=== PATIENT | male | born 1960 | race American Indian/Alaskan Native ===

== ENCOUNTER 2016-12-23 05:17 | Day surgery (SDC) | payer BC, OTHER ==
[2016-12-23] MEDS ORDERED: Midazolam 1 MG/ML 2 ML SDV ONE (06:08)
[2016-12-23] MEDS ORDERED: fentaNYL 100 MCG/2 ML SDV ONE (06:08)
[2016-12-23] MEDS ORDERED: fentaNYL 100 MCG/2 ML SDV IV ONE ×2 (06:26→16:20)
[2016-12-23] MEDS ORDERED: Midazolam 1 MG/ML 2 ML SDV IV ONE ×8 (06:27→16:20)
[2016-12-23] MEDS ORDERED: Sodium Chloride 0.9% 10 ML Syringe FLUSH PRN (07:00)
[2016-12-23] MEDS ORDERED: Dextrose 5%-0.45% NaCl 1,000 ML IV SCH (07:00)
--- NOTE | 2016-12-23 07:12 | OR ---
DATE: 12/23/2016 PROCEDURE: Total colonoscopy. INSTRUMENT USED: CF-H180 AL Olympus video colonoscope. PREMEDICATIONS: Fentanyl 100 mcg intravenous, Versed 4 mg intravenous, Nasal O2 cannula. The procedure was done under pulse oximetry, BP recording, and radiation monitor. INDICATION: The patient with Hemoccult positive stools. Colonoscopic examination is done for detection of any polypoid lesions and removal, endoscopic hemostasis therapy if needed. Initial rectal exam was unremarkable. Rigid anoscopy was normal. The colonoscope was passed with ease. Numerous scattered diverticula were noted in the distal left colon along with deformity. The scope was passed with ease to the ileocecal area, photographs were taken of the normal-appearing cecum, identified with landmarks of appendiceal orifice and double-bulged ileocecal folds. No bleeding was noted from any of the visualized areas at the commencement of the examination. No stricture. No vascular ectasia. No large isolated ulcerations seen. No evidence of diffuse inflammatory bowel disease in the form of friability, contact bleeding, or ulcerations. No polyp or tumor mass was identified. Probing the proximal sides of folds and flexures using adequate distention and clearing up the stool material, withdrawal of the scope was made, cecum to rectum time over 6 minutes. No bleeding was noted from any of the visualized areas at the completion of examination. IMPRESSION: Diverticulosis. The patient tolerated the procedure well. [facility] /[id number]
[2016-12-23 09:13] VITALS: BP 143/97
--- NOTE | 2016-12-23 13:18 | LETTER ---
12/23/2016 Naima Castellanos NP [facility] [address] [place] [address] RE: TENISHA HASSAN : 1960 Dear Ms. Castellanos: Mr. Tenisha Hassan had colonoscopic examination done this morning, which was negative for any bleeding areas. I herewith send a copy of the endoscopy note and photographs for your review. He is scheduled for EGD next week. [facility] /[id number]
== END 2016-12-23 09:10 | disposition home or self-care (01) ==
LOC: DL.ENDO 05:17
PROVIDERS: ATTEND Internal Medicine Gastroenterology
PROC: 0DJD8ZZ Inspection of Lower Intestinal Tract, Via Natural or Artificial Opening Endoscopic (ICD-10-PCS; principal; 2016-12-23)
DX: R19.5 Other fecal abnormalities (principal); K57.90 Diverticulosis of intestine, part unspecified, without perforation or abscess without bleeding
CPT/HCPCS: 45378; J2250; J3010; J7042

== ENCOUNTER → 2016-12-28 | Day surgery (SDC) | payer BC, OTHER ==
[~2016-12-28] MED LIST: Dextrose 5%-0.45% NaCl 1,000 ML IV SCH; Midazolam 1 MG/ML 2 ML SDV IV ONE; Midazolam 1 MG/ML 2 ML SDV ONE; fentaNYL 100 MCG/2 ML SDV IV ONE; fentaNYL 100 MCG/2 ML SDV ONE
[2016-12-28 08:46] VITALS: BP 136/97
--- NOTE | 2016-12-28 09:48 | OR ---
DATE: 12/28/2016 PROCEDURE: Esophagogastroduodenoscopy and multiple pinch biopsies. INSTRUMENT USED: GIF-H180 Olympus video panendoscope. PREMEDICATIONS: No oral topical anesthesia used. Fentanyl 100 mcg intravenous, Versed 2 mg intravenous. The procedure was done under pulse oximetry, BP recording, and secured entrance monitor. INDICATION: The patient with recently detected Hemoccult positive stools. Colonoscopic examination negative for any bleeding areas, status post bariatric surgery for morbid exogenous obesity. Esophagogastroduodenoscopy is performed for detection of any active erosive lesions, H. pylori status to be determined, endoscopic hemostasis therapy if needed. Patient at this time on long-term aspirin and also on PPI. The scope was passed with ease. Adequate visualization of the esophagus was made from proximal to distal areas. No upper esophageal lesions identified. No distal esophageal stricture. No uphill or downhill esophageal varices. No Sulema-Willett tear. No evidence of erosive esophagitis by Los criteria. No esophageal polyp or tumor mass identified. Z- line was seen at around 40 cm distal to the oral verge, configuration consistent with grade 1 by ZAP classification. No proximal gastric varices noted. Gastric fundus examination by retroflexion showed no polypoid lesions. No gastric ulcer, malignant mass, or vascular ectasia identified at this surgical site, erosion was noted without bleeding from it, photographs were also taken of the gastric fundus and distal esophagus. Visualized loops of the small bowel were unremarkable. Multiple pinch biopsies were taken from the distal and proximal gastric mucosa and sent for PyloriTek test for H. pylori, and if negative, another tissue to be sent for histopathology. No bleeding was noted from any of the visualized areas. IMPRESSION: Anastomotic erosion. The patient tolerated the procedure well. [facility] /[id number]
--- NOTE | 2016-12-28 11:22 | LETTER ---
12/28/2016 Naima Emanuel [facility] [address] [place] [address] RE: TENISHA HASSAN : Dear Ms: Emanuel Mr. Tenisha Hassan had esophagogastroduodenoscopy done this morning and he tolerated the procedure well. I herewith send a copy of the endoscopy note and photographs for your review. For now, aspirin is discontinued and Omeprazole dosage is increased to 20 mg p.o. b.i.d. Thank you. Sincerely, [facility] /[id number]
== END | disposition home or self-care (01) ==
LOC: DL.ENDO 05:35
PROVIDERS: ATTEND Internal Medicine Gastroenterology
DX: K29.50 Unspecified chronic gastritis without bleeding (principal); E66.01 Morbid (severe) obesity due to excess calories; I10 Essential (primary) hypertension; E11.9 Type 2 diabetes mellitus without complications; Z98.84 Bariatric surgery status
CPT/HCPCS: 43239; 87077; J2250; J3010; J7042

== ENCOUNTER 2019-08-03 09:14 | Emergency (ER) | payer BC, OTHER ==
[2019-08-03] MEDS ORDERED: Sodium Chloride 0.9% 10 ML Syringe FLUSH PRN (09:28)
--- NOTE | 2019-08-03 09:37 | EDM.PDOC ---
ED HPI GENERAL MEDICAL PROBLEM - General Chief Complaint: Respiratory Problem Stated Complaint: UNKNOWN Time Seen by Provider: 08/03/19 09:20 Source of Information: Reports: Patient History Limitations: Reports: No Limitations - History of Present Illness INITIAL COMMENTS - FREE TEXT/NARRATIVE: patient comes emergency department today from home with concerns of chest pain and shortness of breath. This patient for the past couple of days reports that he has had a intermittent sharp shooting stabbing pain in the left side of his chest. Yesterday morning he woke up about 4:30 in the morning and was unable to breathe and lay down. He was seen at the [facility] clinic yesterday had a chest x-ray and was called this morning and told to come to the ER because of the findings of the chest x-ray. He has a dry hacking nonproductive cough. He has intermittent right-sided chest pain and midsternal pain primarily with a deep breath and cough. He has no pain when he is doing. No weakness dizziness lightheadedness. No syncope. No fever no chills. His cough is dry hacking nonproductive. No abdominal pain no nausea no vomiting. He has had no recent surgeries or procedures. He does have history of emphysema no history of any cancers. Right Chest Pain Score (Numeric/FACES): 4 - Related Data Allergies Allergy/AdvReac Type Severity Reaction Status Date / Time No Known Allergies Allergy Verified 08/03/19 09:33 Home Meds: Home Meds Aspirin [Andrea Chewable] 81 mg PO BEDTIME 11/21/13 [History] Multivitamin [Multi Vitamin Daily] 1 tab PO BID 11/21/13 [History] Albuterol Sulfate [Proair Hfa] 2 puff INH Q6HR PRN 12/21/16 [History] Past Medical History HEENT History: Reports: Sinusitis Cardiovascular History: Reports: Arrhythmia, Hypertension Respiratory History: Reports: Sleep Apnea, Other (See Below) Other Respiratory History: emphysema Gastrointestinal History: Reports: GERD, Hepatitis Genitourinary History: Reports: Other (See Below) Other Genitourinary History: RENAL CYST Musculoskeletal History: Reports: Other (See Below) Other Musculoskeletal History: heal spurs Neurological History: Reports: None Psychiatric History: Reports: None Endocrine/Metabolic History: Reports: Diabetes, Type II, Obesity/BMI 30+ Hematologic History: Reports: None Immunologic History: Reports: None Oncologic (Cancer) History: Reports: None Dermatologic History: Reports: None - Infectious Disease History Infectious Disease History: Reports: Chicken Pox, Hepatitis B, Measles, Mumps - Past Surgical History GI Surgical History: Reports: Bariatric Procedure, Cholecystectomy, EGD Musculoskeletal Surgical History: Reports: Carpal Tunnel Social & Family History - Family History HEENT: Reports: None Cardiac: Reports: None Respiratory: Reports: None GI: Reports: None : Reports: None OBGYN: Reports: None Musculoskeletal: Reports: Arthritis Neurological: Reports: None Psychiatric: Reports: None Endocrine/Metabolic: Reports: Diabetes, type II Hematologic: Reports: None Immunologic: Reports: None Dermatologic: Reports: Eczema Oncologic: Reports: Liver - Caffeine Use Caffeine Use: Reports: Coffee Caffeine Use Comment: 2 cups coffee daily ED ROS GENERAL - Review of Systems Review Of Systems: ROS reveals no pertinent complaints other than HPI. ED EXAM, GENERAL - Physical Exam Exam: See Below Free Text/Narrative:: patient is resting Margaret on the cot and is able to speak in full sentences appears in no acute distress. Exam Limited By: No Limitations General Appearance: Alert, WD/WN, No Apparent Distress Nose: Normal Inspection Throat/Mouth: Normal Inspection, Normal Lips, Normal Oropharynx, No Airway Compromise Head: Atraumatic, Normocephalic Neck: Normal Inspection, Supple Respiratory/Chest: No Respiratory Distress, Decreased Breath Sounds (profoundly on the right some lung sounds at the apex. Normal on the left without wheezes rhonchi or rales.). No: Respiratory Distress, Accessory Muscle Use Cardiovascular: Normal Peripheral Pulses, Regular Rate, Rhythm, No Edema, No Murmur Peripheral Pulses: 2+: Radial (L), Radial (R), Popliteal (L), Popliteal (R) GI/Abdominal: Normal Bowel Sounds, Soft Back Exam: Normal Inspection, Full Range of Motion Extremities: Normal Inspection, Normal Range of Motion, Normal Capillary Refill Neurological: Alert, Oriented, Normal Cognition, No Motor/Sensory Deficits Psychiatric: Normal Affect, Normal Mood Skin Exam: Warm, Dry, Intact Lymphatic: No Adenopathy EKG INTERPRETATION EKG Date: 08/03/19 Time: 09:29 Rhythm: NSR Rate (Beats/Min): 86 [place]: Normal P-Wave: Present QRS: Normal ST-T: Normal QT: Normal Course - Vital Signs Last Recorded V/S: Last Vital Signs Temp 36.9 C 08/03/19 09:25 Pulse 92 08/03/19 09:25 Resp 18 08/03/19 09:25 BP 152/90 H 08/03/19 09:25 Pulse Ox 92 L 08/03/19 09:25 - Orders/Labs/Meds Orders: Active Orders 24 hr Category Date Time Status EKG 12 Lead [EKG Documentation Completion] [RC] URGENT Care 08/03/19 09:27 Active Peripheral IV Care [RC] . DIRECTED Care 08/03/19 09:28 Active B-TYPE NATRIURETIC PEPTIDE,BNP [CHEM] Stat Lab 08/03/19 09:29 Results C-REACTIVE PROTEIN [CHEM] Stat Lab 08/03/19 09:29 Received COMPREHENSIVE METABOLIC PN,CMP [CHEM] Stat Lab 08/03/19 09:29 Results LACTIC ACID [CHEM] Stat Lab 08/03/19 09:29 Received TROPONIN I [CHEM] Stat Lab 08/03/19 09:29 Results Sodium Chloride 0.9% [Saline Flush] Med 08/03/19 09:28 Active 10 ml FLUSH ASDIRECTED PRN Peripheral IV Insertion Adult [OM.PC] Stat Oth 08/03/19 09:27 Ordered Medication Orders Sodium Chloride (Saline Flush) 10 ml FLUSH ASDIRECTED PRN PRN Reason: Keep Vein Open Last Admin: 08/03/19 09:31 Dose: 10 ml Labs: Laboratory Tests 08/03/19 08/03/19 08/03/19 Range/Units 09:29 09:29 09:29 WBC 14.2 H (5.0-10.0) 10^3/uL RBC 5.17 (4.6-6.2) 10^6/uL Hgb 14.2 (14.0-18.0) g/dL Hct 43.2 (40.0-54.0) % MCV 83.6 (80-100) fL MCH 27.5 (27.0-34.0) pg MCHC 32.9 L (33.0-35.0) g/dL Plt Count 250 (150-450) 10^3/uL Neut % (Auto) 89.3 H (42.2-75.2) % Lymph % (Auto) 7.6 L (20.5-50.1) % [place] % (Auto) 2.7 (2-8) % Eos % (Auto) 0.2 L (1.0-3.0) % Baso % (Auto) 0.2 (0.0-1.0) % D-Dimer, Quantitative < 100 (0-400) ng/mL Troponin I < 0.02 (0.00-0.02) ng/ml B-Natriuretic Peptide 18 (0-100) pg/ml Meds: Medications Generic Name Dose Route Start Last Admin Trade Name Freq PRN Reason Stop Dose Admin Sodium Chloride 10 ml 08/03/19 09:28 08/03/19 09:31 Saline Flush FLUSH 10 ml ASDIRECTED PRN Administration Keep Vein Open Discontinued Medications Generic Name Dose Route Start Last Admin Trade Name Freq PRN Reason Stop Dose Admin Iopamidol 75 ml 08/03/19 10:10 08/03/19 10:20 Isovue-300 (61%) IVPUSH 08/03/19 10:11 75 ml ONETIME ONE Administration - Radiology Interpretation Free Text/Narrative:: chest x-ray initially reviewed extemporaneously initially by myself shows a pneumothorax on the right side about 50%. Loculated. CT chest with contrast initially reviewed Ixempra initially by myself shows a rather large 95% pneumothorax loculated no subcutaneous air complete collapsing of the right lung posteriorly. CT of the chest per radiology shows a very large right-sided pneumothorax with a right lung largely collapsed. Bullous emphysematous disease bilaterally - Re-Assessments/Exams Free Text/Narrative Re-Assessment/Exam: 08/03/19 11:15 I did speak with Dr. West the surgeon tombstone setter and he advises no chest tube at this time as the patient is clinically stable and to allow the definitive care facility to evaluate and treat. I called and spoke with Dr. River the hospitalist tombstone setter at [facility] in [place]. History of present illness ER course findings and concerns were relayed to him. He does not want a chest tube placed either as he is clinically stable. Transfer by ground ambulance. I discussed with the patient and his the concerns of this rather large pneumothorax.He needs transfer to a higher level of care where they have CV surgery as well as interventional radiology. I reviewed the CAT scans chest x- ray and his laboratory evaluation with him his questions were answered and he was comfortable with this plan. Departure - Departure Time of Disposition: 11:00 Disposition: DC/Tfer to Acute Hospital 02 Clinical Impression: Pneumothorax on right, Bullous emphysema with collapse - Discharge Information Forms: ED Department Discharge - My Orders Last 24 Hours: My Active Orders 08/03/19 09:27 EKG 12 Lead [EKG Documentation Completion] [RC] URGENT Peripheral IV Insertion Adult [OM.PC] Stat 08/03/19 09:28 Peripheral IV Care [RC] . DIRECTED Sodium Chloride 0.9% [Saline Flush] 10 ml FLUSH ASDIRECTED PRN 08/03/19 09:29 B-TYPE NATRIURETIC PEPTIDE,BNP [CHEM] Stat C-REACTIVE PROTEIN [CHEM] Stat COMPREHENSIVE METABOLIC PN,CMP [CHEM] Stat LACTIC ACID [CHEM] Stat TROPONIN I [CHEM] Stat - Assessment/Plan Last 24 Hours: My Active Orders 08/03/19 09:27 EKG 12 Lead [EKG Documentation Completion] [RC] URGENT Peripheral IV Insertion Adult [OM.PC] Stat 08/03/19 09:28 Peripheral IV Care [RC] . DIRECTED Sodium Chloride 0.9% [Saline Flush] 10 ml FLUSH ASDIRECTED PRN 08/03/19 09:29 B-TYPE NATRIURETIC PEPTIDE,BNP [CHEM] Stat C-REACTIVE PROTEIN [CHEM] Stat COMPREHENSIVE METABOLIC PN,CMP [CHEM] Stat LACTIC ACID [CHEM] Stat TROPONIN I [CHEM] Stat Assessment:: right-sided large pneumothorax. Bullous emphysematous bilaterally with right lung collapse Plan: transfer by ground ambulance to [facility] in [place] for further care and evaluation. With the discussion with the EMS if acute respiratory distress or decompensation a right sided needle thoracentisis should be completed.
[2019-08-03] MEDS ORDERED: Iopamidol 612 MG/ML 75 ML Bottle IVPUSH ONE (10:10)
[2019-08-03 11:10] LABS: ANION GAP 13.9; CHLORIDE,CL 108 mmol/L (101-111); SODIUM,NA 137 mmol/L (135-145)
[2019-08-03 11:19] VITALS: BP 134/82; PULSE 78
== END 2019-08-03 11:49 ==
LOC: DL.ED 09:14
DX: J93.9 Pneumothorax, unspecified (principal); J43.9 Emphysema, unspecified; I10 Essential (primary) hypertension; E11.9 Type 2 diabetes mellitus without complications; E66.9 Obesity, unspecified; Z79.82 Long term (current) use of aspirin
CPT/HCPCS: 36415; 71046; 71260; 80053; 83605; 83880; 84484; 85025; 85379; 86140; 93005; 99285; Q9967

== ENCOUNTER 2023-09-18 07:55 | Emergency (ER) | payer BC, OTHER ==
[2023-09-18] MEDS ORDERED: fentaNYL 100 MCG/2 ML SDV IVPUSH ONE ×5 (08:01→12:50)
[2023-09-18] MEDS ORDERED: Sodium Chloride 0.9% 10 ML Syringe FLUSH PRN (08:01)
[2023-09-18] MEDS ORDERED: Sodium Chloride 0.9% 1,000 ML IV ONE ×2 (08:01→08:56)
[2023-09-18] MEDS ORDERED: Ondansetron 4 MG/2 ML SDV IV ONE (08:01)
[2023-09-18] MEDS ORDERED: Iopamidol 755 Mg/ML 100 ML Bottle IVPUSH ONE (08:05)
[2023-09-18 08:07] VITALS: BP 114/81; PULSE 60
[2023-09-18 08:31] LABS: BASOPHILS PERCENT AUTO 0.2 % (0.0-1.0); HEMOGLOBIN 10.4 g/dL (14.0-18.0); MEAN CORPUSCULAR HEMOGLOBIN 29.4 pg (27.0-34.0); MEAN CORPUSCULAR HGB CONC 30.6 g/dL (33.0-35.0); MONOCYTES PERCENT AUTO 3.9 % (2-8); NEUTROPHILS PERCENT AUTO 75.9 % (42.2-75.2); PLATELET COUNT,PLT 568 10^3/uL (150-450); RED BLOOD CELL COUNT 3.54 10^6/uL (4.6-6.2); WHITE BLOOD CELL COUNT,WBC 9.4 10^3/uL (5.0-10.0)
[2023-09-18 08:53] LABS: ALANINE AMINOTRANSFERASE,ALT 21 U/L (16-63); ALBUMIN 3.1 g/dL (3.4-5.0); ALKALINE PHOSPHATASE 90 U/L (46-116); ASPARTATE AMNIOTRANSFERASE,AST 15 U/L (15-37); BILIRUBIN TOTAL 0.5 mg/dL (0.2-1.0); BLOOD UREA NITROGEN,BUN 11 mg/dL (7-18); BUN/CREATININE RATIO 13.4 (No establ ref range); CALCIUM 8.1 mg/dL (8.5-10.1); CREATININE 0.82 mg/dL (0.70-1.30); EST CRCL DRUG DOSING (CG) 99.48 mL/min; GLUCOSE RANDOM 180 mg/dL (70-99); LIPASE 40 U/L (16-77); PROTEIN TOTAL,TP 6.1 g/dL (6.4-8.2)
[2023-09-18 08:56] LABS: INR 0.9 (0.9-1.2); PROTHROMBIN TIME 9.3 SEC (9.0-12.0)
[2023-09-18 08:59] LABS: ANION GAP 14.6 mEq/L (7-13); CARBON DIOXIDE,CO2 22 mmol/L (21-32); CHLORIDE,CL 107 mmol/L (98-107); POTASSIUM,K 3.6 mmol/L (3.5-5.1); SODIUM,NA 140 mmol/L (136-145)
[2023-09-18 09:01] LABS: A/G RATIO 1.03; C-REACTIVE PROTEIN < 0.50 ng/dL (<=0.50); ESTIMATED GFR 99 mL/min (>=60); LACTIC ACID 2.7 mmol/L (0.4-2.0)
[2023-09-18 09:44] LABS: APPEARANCE,URINE CLEAR (CLEAR); BILIRUBIN,URINE NEGATIVE (NEGATIVE); COLOR,URINE DARK YELLOW (YELLOW); GLUCOSE,URINE NEGATIVE (NEGATIVE); KETONES,URINE NEGATIVE (NEGATIVE); LEUKOCYTE ESTERASE,URINE NEGATIVE (NEGATIVE); NITRITE,URINE NEGATIVE (NEGATIVE); OCCULT BLOOD,URINE NEGATIVE (NEGATIVE); PH,URINE 5.5 (5.0-9.0); PROTEIN,URINE NEGATIVE (NEGATIVE); UROBILINOGEN,URINE 0.2 mg/dL (0.2-1.0)
[2023-09-18] MEDS ORDERED: fentaNYL 100 MCG/2 ML SDV ONE (11:19)
[2023-09-18] MEDS ORDERED: Piperacillin/Tazobactam 4.5 GM in Sodium Chloride 0.9% 100 ML IV ONE (11:53)
== END 2023-09-18 12:57 ==
LOC: DL.ED 07:55
DX: K63.1 Perforation of intestine (nontraumatic) (principal); I10 Essential (primary) hypertension; E11.9 Type 2 diabetes mellitus without complications; J43.9 Emphysema, unspecified; Z87.891 Personal history of nicotine dependence; E66.9 Obesity, unspecified; Z68.38 Body mass index [BMI] 38.0-38.9, adult; Z79.82 Long term (current) use of aspirin; Z79.899 Other long term (current) drug therapy
CPT/HCPCS: 36415; 71045; 71275; 74175; 80053; 81003; 83605; 83690; 84145; 84484; 85025; 85610; 85730; 86140; 87040; 93005; 93010; 96361; 96365; 96375; 96376; 99285; 99285-25; J2405; J2543; J3010; J3490; J7030; Q9967

== ENCOUNTER 2024-11-10 14:50 | Emergency (ER) | payer BC, OTHER ==
[2024-11-10 15:07] VITALS: BP 111/66; PULSE 110
== END 2024-11-10 15:09 | disposition home or self-care (01) ==
LOC: DL.ED 14:50
DX: J18.9 Pneumonia, unspecified organism (principal); I10 Essential (primary) hypertension; E11.9 Type 2 diabetes mellitus without complications; E66.9 Obesity, unspecified; Z68.39 Body mass index [BMI] 39.0-39.9, adult; Z86.16 Personal history of COVID-19; Z79.51 Long term (current) use of inhaled steroids; Z79.82 Long term (current) use of aspirin; Z79.899 Other long term (current) drug therapy
CPT/HCPCS: 99284